=== PATIENT | female | born 1960 | race American Indian/Alaskan Native ===

== ENCOUNTER 2018-12-28 05:01 | Inpatient (IN) | payer OTHER ==
[2018-12-28 05:36] LABS: Hematocrit 37.6 % (30.3-42.9); Hemoglobin 12.7 gm/dl (10.1-14.3); Mean Corpuscular HGB Conc 34 % (30-34); Mean Corpuscular Volume 91 fl (79-97); Platelet Count 295 K/mm3 (140-440); Red Blood Count 4.15 M/mm3 (3.65-5.03); Red Cell Distribution Width 14.3 % (13.2-15.2)
[2018-12-28 05:52] LABS: BUN/Creatinine Ratio 19; Blood Urea Nitrogen 21 mg/dL (7-17); Calcium 9.3 mg/dL (8.4-10.2); Hemolysis Index 10
--- NOTE | 2018-12-28 06:16 | Emergency Department Report ---
ED General Adult HPI - General Chief complaint: Arrhythmia/Palpitations Stated complaint: HEART RACING/WEAK Time Seen by Provider: 12/28/18 05:59 Source: patient Mode of arrival: Ambulatory Limitations: No Limitations - History of Present Illness Initial comments: Mrs. Parr is a very pleasant 58 yo female who presents with fatigue and "stress" on her chest. She feels as if her heart is under stress. Has been noncompliant with anitihypertensive medication for several years. Currently not under care of PCP. She has been under a lot of stress. Denies depression. CUrrently unemployed. Denies chest pain or shortness of breath. Denies leg swelling. -: Gradual, days(s) (1) Quality: other ("strain") Consistency: constant Improves with: none Worsens with: none Associated Symptoms: other (fatigue) - Related Data Previous Rx's Medication Instructions Recorded Last Taken Type Ibuprofen [Motrin 800 MG tab] 800 mg PO TID PRN #20 tablet 12/25/14 Unknown Rx amLODIPine [Norvasc] 5 mg PO DAILY #90 tab 12/25/14 Unknown Rx Cyclobenzaprine HCl [Flexeril 5mg] 5 mg PO Q8HR PRN #15 tablet 12/31/14 Unknown Rx HYDROcodone/APAP 5-325 [[place] 1 - 2 each PO Q6HR PRN #20 tablet 12/31/14 Unknown Rx 5-325 mg TAB] amLODIPine [Norvasc] 5 mg PO DAILY 30 Days #30 tab 12/28/18 Unknown Rx hydroCHLOROthiazide [HCTZ] 25 mg PO QDAY 30 Days #30 tablet 12/28/18 Unknown Rx Allergies Allergy/AdvReac Type Severity Reaction Status Date / Time No Known Allergies Allergy Verified 12/31/14 03:35 ED Review of Systems ROS: Stated complaint: HEART RACING/WEAK Other details as noted in HPI Comment: All other systems reviewed and negative Constitutional: denies: fever, malaise Respiratory: denies: cough Cardiovascular: denies: chest pain ED Past Medical Hx - Past Medical History Previous Medical History?: Yes Hx Hypertension: Yes (off meds x over 5 years) - Surgical History Past Surgical History?: No Additional Surgical History: hernia repair - Social History Smoking Status: Never Smoker Substance Use Type: None - Medications Home Medications: Home Medications Medication Instructions Recorded Confirmed Last Taken Type Ibuprofen [Motrin 800 MG tab] 800 mg PO TID PRN #20 tablet 12/25/14 Unknown Rx amLODIPine [Norvasc] 5 mg PO DAILY #90 tab 12/25/14 Unknown Rx Cyclobenzaprine HCl [Flexeril 5mg] 5 mg PO Q8HR PRN #15 tablet 12/31/14 Unknown Rx HYDROcodone/APAP 5-325 [[place] 1 - 2 each PO Q6HR PRN #20 tablet 12/31/14 Unknown Rx 5-325 mg TAB] amLODIPine [Norvasc] 5 mg PO DAILY 30 Days #30 tab 12/28/18 Unknown Rx hydroCHLOROthiazide [HCTZ] 25 mg PO QDAY 30 Days #30 tablet 12/28/18 Unknown Rx ED Physical Exam - General Limitations: No Limitations General appearance: alert, in no apparent distress - Head Head exam: Present: atraumatic, normocephalic - Eye Eye exam: Present: normal appearance - ENT ENT exam: Present: mucous membranes moist - Neck Neck exam: Present: normal inspection, full ROM - Respiratory Respiratory exam: Present: normal lung sounds bilaterally. Absent: respiratory distress, wheezes, rales, rhonchi - Cardiovascular Cardiovascular Exam: Present: regular rate, normal rhythm, normal heart sounds. Absent: systolic murmur, diastolic murmur, rubs, gallop - GI/Abdominal GI/Abdominal exam: Present: soft, normal bowel sounds. Absent: distended, tenderness, guarding, rebound - Extremities Exam Extremities exam: Present: normal inspection - Back Exam Back exam: Present: normal inspection - Neurological Exam Neurological exam: Present: alert, oriented X3 - Psychiatric Psychiatric exam: Present: normal affect, normal mood - Skin Skin exam: Present: warm, dry, intact, normal color. Absent: rash ED Course Vital Signs 12/28/18 12/28/18 12/28/18 06:25 06:28 06:30 Temperature 98.5 F Pulse Rate 72 74 Respiratory 16 18 Rate Blood Pressure 176/97 196/106 Blood Pressure 176/97 [Left] O2 Sat by Pulse 100 100 Oximetry 12/28/18 12/28/18 12/28/18 06:45 07:00 07:12 Temperature Pulse Rate 79 78 82 Respiratory 17 9 L Rate Blood Pressure 200/98 196/102 196/102 Blood Pressure [Left] O2 Sat by Pulse 100 100 Oximetry ED Medical Decision Making - Lab Data Result diagrams: 12/28/18 05:18 12/28/18 05:18 - EKG Data 12/28/18 06:14 EKG obtained 513 Normal sinus rhythm rate 90 beats a minute normal axis normal intervals positive LVH ST depression in the inferior leads - Medical Decision Making Mrs. Parr is a healthy 58-year-old female who has been noncompliant with antihypertensive medication presents with fatigue heart "strain". Severely blood pressure here in the ED. Middle-age female, this presentation could represent ischemia or ACS due to microvessel disease. Additionally, with equivocal troponin level, patient is at risk for future cardiac event. Noted elevated BNP. EKG abnormal with ST depression inferiorly leads and LVH. I susp ect diastolic heart failure with untreated hypertension. She will require cardiac stress testing and echocardiogram. Admitted to the hospitalist service in stable condition. Treated with aspirin and antihypertensive medicine by mouth and IV in the ED. Bridging orders provided. Critical care attestation.: If time is entered above; I have spent that time in minutes in the direct care of this critically ill patient, excluding procedure time. ED Disposition Clinical Impression: Hypertensive urgency, Acute coronary syndrome Disposition: OP ADMIT IP TO THIS HOSP Is pt being admited?: Yes Does the pt Need Aspirin: No Condition: Stable Prescriptions: hydroCHLOROthiazide [HCTZ] 25 mg PO QDAY 30 Days #30 tablet amLODIPine [Norvasc] 5 mg PO DAILY 30 Days #30 tab
[2018-12-28] MEDS ORDERED: NORMODYNE PO ONE (06:43)
--- NOTE | 2018-12-28 06:56 | XRay Report ---
PROCEDURE: XR CHEST 1V AP HISTORY: fatigue COMPARISONS: None FINDINGS: Normal cardiomediastinal silhouette. No focal infiltrate, CHF changes, mass or pleural effusion. No pneumothorax. Unremarkable osseous structures. Impression: 1. No radiographic evidence of active lung disease. This document is electronically signed by Joanne Rooney MD., December 28 2018 06:53:51 AM ET
[2018-12-28 07:11] LABS: Basophils % (Manual) 0 % (0.0-1.8); Eosinophils % (Manual) 0 % (0.0-4.3); RBC Morphology Normal; Total Cells Counted 100
[2018-12-28] MEDS ORDERED: BABY ASPIRIN PO ONE (07:34)
[2018-12-28] MEDS ORDERED: NORMODYNE IV ONE ×2 (07:34→09:06)
[2018-12-28 07:43] LABS: Chol/HDL Ratio 4.6 %
[2018-12-28] MEDS ORDERED: ASPIRIN ONE (09:05)
--- NOTE | 2018-12-28 09:48 | History and Physical Report ---
History of Present Illness Date of examination: 12/28/18 Date of admission: 12/28/18 07:36 Chief complaint: Chest pressure and discomfort History of present illness: Mrs. Parr is a very pleasant 58 yo female who presents with fatigue and chest discomfort. She feels as if her heart is under stress. Has been noncompliant with anitihypertensive medication for several years. Currently not under care of PCP. She has been under a lot of stress. Denies depression. CUrrently unemployed. Denies chest pain or shortness of breath. Denies leg swelling. Past Medical History Previous Medical History?: Yes Hx Hypertension: Yes (off meds x over 5 years) Surgical History Past Surgical History?: No Additional Surgical History: hernia repair Social History Smoking Status: Never Smoker Substance Use Type: None Medications Home Medications: Home Medications Medication Instructions Recorded Confirmed Last Taken Type Ibuprofen [Motrin 800 MG tab] 800 mg PO TID PRN #20 tablet 12/25/14 Unknown Rx amLODIPine [Norvasc] 5 mg PO DAILY #90 tab 12/25/14 Unknown Rx Cyclobenzaprine HCl [Flexeril 5mg] 5 mg PO Q8HR PRN #15 tablet 12/31/14 Unknown Rx HYDROcodone/APAP 5-325 [[place] 1 - 2 each PO Q6HR PRN #20 tablet 12/31/14 Unknown Rx 5-325 mg TAB] amLODIPine [Norvasc] 5 mg PO DAILY 30 Days #30 tab 12/28/18 Unknown Rx hydroCHLOROthiazide [HCTZ] 25 mg PO QDAY 30 Days #30 tablet 12/28/18 Unknown Rx Review of Systems ROS: Stated complaint: HEART RACING/WEAK Other details as noted in HPI Comment: All other systems reviewed and negative Constitutional: denies: fever, malaise Respiratory: denies: cough Cardiovascular: denies: chest pain Medications and Allergies Allergies Allergy/AdvReac Type Severity Reaction Status Date / Time No Known Allergies Allergy Verified 12/31/14 03:35 Home Medications Medication Instructions Recorded Confirmed Last Taken Type amLODIPine [Norvasc] 5 mg PO DAILY 12/28/18 12/28/18 10/10/15 History Exam - Constitutional Vitals: Temp Pulse Resp BP Pulse Ox 97.5 F L 68 18 187/86 100 12/28/18 09:25 12/28/18 09:25 12/28/18 09:25 12/28/18 09:25 12/28/18 09:25 General appearance: Present: no acute distress, well-nourished - EENT Eyes: Present: PERRL ENT: hearing intact, clear oral mucosa - Neck Neck: Present: supple, normal ROM - Respiratory Respiratory effort: normal Respiratory: bilateral: CTA - Cardiovascular Heart rate: 78 Rhythm: regular Heart Sounds: Present: S1 & S2. Absent: rub, click - Extremities Extremities: no ischemia, pulses intact, pulses symmetrical, No edema Peripheral Pulses: within normal limits - Abdominal General gastrointestinal: Present: soft, non-tender, non-distended, normal bowel sounds Female genitourinary: Present: normal - Integumentary Integumentary: Present: clear, warm, dry - Musculoskeletal Musculoskeletal: gait normal, strength equal bilaterally - Psychiatric Psychiatric: appropriate mood/affect, intact judgment & insight - Neurologic Neurologic: CNII-XII intact, moves all extremities - Allied Health Allied health notes reviewed: nursing, case management Results - Labs CBC & Chem 7: 12/29/18 05:51 12/29/18 05:51 Labs: Laboratory Last Values WBC 7.3 K/mm3 (4.5-11.0) 12/28/18 05:18 RBC 4.15 M/mm3 (3.65-5.03) 12/28/18 05:18 Hgb 12.7 gm/dl (10.1-14.3) 12/28/18 05:18 Hct 37.6 % (30.3-42.9) 12/28/18 05:18 MCV 91 fl (79-97) 12/28/18 05:18 MCH 31 pg (28-32) 12/28/18 05:18 MCHC 34 % (30-34) 12/28/18 05:18 RDW 14.3 % (13.2-15.2) 12/28/18 05:18 Plt Count 295 K/mm3 (140-440) 12/28/18 05:18 Add Manual Diff Complete 12/28/18 05:18 Total Counted 100 12/28/18 05:18 Seg Neutrophils % Monkey Trainer 12/28/18 05:18 Seg Neuts % (Manual) 55.0 % (40.0-70.0) 12/28/18 05:18 Band Neutrophils % 0 % 12/28/18 05:18 Lymphocytes % (Manual) 42.0 % (13.4-35.0) H 12/28/18 05:18 Reactive Lymphs % (Man) 0 % 12/28/18 05:18 Monocytes % (Manual) 3.0 % (0.0-7.3) 12/28/18 05:18 Eosinophils % (Manual) 0 % (0.0-4.3) 12/28/18 05:18 Basophils % (Manual) 0 % (0.0-1.8) 12/28/18 05:18 Metamyelocytes % 0 % 12/28/18 05:18 Myelocytes % 0 % 12/28/18 05:18 Promyelocytes % 0 % 12/28/18 05:18 Blast Cells % 0 % 12/28/18 05:18 Nucleated RBC % Not Reportable 12/28/18 05:18 Seg Neutrophils # Man 4.0 K/mm3 (1.8-7.7) 12/28/18 05:18 Band Neutrophils # 0.0 K/mm3 12/28/18 05:18 Lymphocytes # (Manual) 3.1 K/mm3 (1.2-5.4) 12/28/18 05:18 Abs React Lymphs (Man) 0.0 K/mm3 12/28/18 05:18 Monocytes # (Manual) 0.2 K/mm3 (0.0-0.8) 12/28/18 05:18 Eosinophils # (Manual) 0.0 K/mm3 (0.0-0.4) 12/28/18 05:18 Basophils # (Manual) 0.0 K/mm3 (0.0-0.1) 12/28/18 05:18 Metamyelocytes # 0.0 K/mm3 12/28/18 05:18 Myelocytes # 0.0 K/mm3 12/28/18 05:18 Promyelocytes # 0.0 K/mm3 12/28/18 05:18 Blast Cells # 0.0 K/mm3 12/28/18 05:18 WBC Morphology Not Reportable 12/28/18 05:18 Hypersegmented Neuts Not Reportable 12/28/18 05:18 Hyposegmented Neuts Not Reportable 12/28/18 05:18 Hypogranular Neuts Not Reportable 12/28/18 05:18 Smudge Cells Not Reportable 12/28/18 05:18 Toxic Granulation Not Reportable 12/28/18 05:18 Toxic Vacuolation Not Reportable 12/28/18 05:18 Dohle Bodies Not Reportable 12/28/18 05:18 Pelger-Huet Anomaly Not Reportable 12/28/18 05:18 Librado Rods Not Reportable 12/28/18 05:18 Platelet Estimate Appears normal 12/28/18 05:18 Clumped Platelets Not Reportable 12/28/18 05:18 Plt Clumps, EDTA Not Reportable 12/28/18 05:18 Large Platelets Not Reportable 12/28/18 05:18 Giant Platelets Not Reportable 12/28/18 05:18 Platelet Satelliting Not Reportable 12/28/18 05:18 Plt Morphology Comment Not Reportable 12/28/18 05:18 RBC Morphology Normal 12/28/18 05:18 Dimorphic RBCs Not Reportable 12/28/18 05:18 Polychromasia Not Reportable 12/28/18 05:18 Hypochromasia Not Reportable 12/28/18 05:18 Poikilocytosis Not Reportable 12/28/18 05:18 Anisocytosis Not Reportable 12/28/18 05:18 Microcytosis Not Reportable 12/28/18 05:18 Macrocytosis Not Reportable 12/28/18 05:18 Spherocytes Not Reportable 12/28/18 05:18 Pappenheimer Bodies Not Reportable 12/28/18 05:18 Sickle Cells Not Reportable 12/28/18 05:18 Target Cells Not Reportable 12/28/18 05:18 Tear Drop Cells Not Reportable 12/28/18 05:18 Ovalocytes Not Reportable 12/28/18 05:18 Helmet Cells Not Reportable 12/28/18 05:18 Thompson-Nedrow Bodies Not Reportable 12/28/18 05:18 [place] Rings Not Reportable 12/28/18 05:18 [place] Cells Not Reportable 12/28/18 05:18 Bite Cells Not Reportable 12/28/18 05:18 Crenated Cell Not Reportable 12/28/18 05:18 Elliptocytes Not Reportable 12/28/18 05:18 Acanthocytes (Spur) Not Reportable 12/28/18 05:18 Rouleaux Not Reportable 12/28/18 05:18 Hemoglobin C Crystals Not Reportable 12/28/18 05:18 Schistocytes Not Reportable 12/28/18 05:18 Malaria parasites Not Reportable 12/28/18 05:18 Jose C Bodies Not Reportable 12/28/18 05:18 Hem Pathologist Commnt No 12/28/18 05:18 Sodium 139 mmol/L (137-145) 12/28/18 05:18 Potassium 3.5 mmol/L (3.6-5.0) L 12/28/18 05:18 Chloride 100.4 mmol/L (98-107) 12/28/18 05:18 Carbon Dioxide 25 mmol/L (22-30) 12/28/18 05:18 Anion Gap 17 mmol/L 12/28/18 05:18 BUN 21 mg/dL (7-17) H 12/28/18 05:18 Creatinine 1.1 mg/dL (0.7-1.2) 12/28/18 05:18 Estimated GFR > 60 ml/min 12/28/18 05:18 BUN/Creatinine Ratio 19 % 12/28/18 05:18 Glucose 105 mg/dL (65-100) H 12/28/18 05:18 Calcium 9.3 mg/dL (8.4-10.2) 12/28/18 05:18 Troponin T 0.034 ng/mL (0.00-0.029) H 12/28/18 05:18 NT-Pro-B Natriuret Pep 2669 pg/mL (0-900) H 12/28/18 05:18 Triglycerides 124 mg/dL (2-149) 12/28/18 05:18 Cholesterol 175 mg/dL (50-199) 12/28/18 05:18 LDL Cholesterol Direct 122 mg/dL (50-130) 12/28/18 05:18 HDL Cholesterol 38 mg/dL (40-59) L 12/28/18 05:18 Cholesterol/HDL Ratio 4.60 % 12/28/18 05:18 - Imaging and Cardiology EKG: report reviewed (NSR 89/min LVH ) Assessment and Plan Advance Directives: Yes (Full code) VTE prophylaxis?: Chemical Plan of care discussed with patient/family: Yes - Patient Problems (1) Hypertensive urgency Current Visit: Yes Status: Acute Plan to address problem: Started on Losartan and Coreg and Amlodipine Hydralazine 10 mg q3 PRN (2) Chest pain Current Visit: Yes Status: Acute Qualifiers: Chest pain type: unspecified Qualified Code(s): R07.9 - Chest pain, unspecified Plan to address problem: Lexiscan tomorrow (3) DVT prophylaxis Current Visit: Yes Status: Acute Plan to address problem: On Lovenox and GI prophylaxis
[2018-12-28] MEDS ORDERED: SODIUM CHLORIDE FLUSH SYRINGE 10 ML IV PRN (09:50)
[2018-12-28] MEDS ORDERED: PERCOCET 5/325 PO PRN (09:50)
[2018-12-28] MEDS ORDERED: DILAUDID IV PRN (09:50)
[2018-12-28] MEDS ORDERED: ZOFRAN IV PRN (11:00)
[2018-12-28] MEDS ORDERED: TYLENOL PO PRN (11:00)
[2018-12-28] MEDS: COZAAR PO SCH (11:10)
[2018-12-28] MEDS: NORVASC PO SCH (11:10)
[2018-12-28] MEDS: COREG PO SCH ×2 (11:10→22:10)
[2018-12-28] MEDS: PEPCID PO SCH ×2 (11:10→22:10)
[2018-12-28] MEDS: SODIUM CHLORIDE FLUSH SYRINGE 10 ML IV SCH ×2 (11:12→22:14)
[2018-12-28] MEDS: APRESOLINE IV PRN (17:18)
[2018-12-29] MEDS: NORVASC PO SCH ×2 (04:59→13:48)
[2018-12-29 06:39] LABS: Basophils % (Auto) 0.5 % (0.0-1.8); Eosinophils # (Auto) 0.1 K/mm3 (0.0-0.4); Eosinophils % (Auto) 1.8 % (0.0-4.3); Hematocrit 39.5 % (30.3-42.9); Hemoglobin 13.1 gm/dl (10.1-14.3); Lymphocytes # (Auto) 1.8 K/mm3 (1.2-5.4); Lymphocytes % (Auto) 32.8 % (13.4-35.0); Mean Corpuscular HGB Conc 33 % (30-34); Mean Corpuscular Volume 92 fl (79-97); Monocytes # (Auto) 0.5 K/mm3 (0.0-0.8); Monocytes % (Auto) 8.9 % (0.0-7.3); Platelet Count 295 K/mm3 (140-440); Red Cell Distribution Width 14.4 % (13.2-15.2)
[2018-12-29 07:06] LABS: Alanine Aminotransferase 9 units/L (7-56); BUN/Creatinine Ratio 14; Blood Urea Nitrogen 13 mg/dL (7-17); Calcium 9.5 mg/dL (8.4-10.2); Hemolysis Index 2
[2018-12-29] MEDS ORDERED: LEXISCAN IV ONE ×2 (11:41→11:42)
[2018-12-29] MEDS: COZAAR PO SCH (13:47)
[2018-12-29] MEDS: COREG PO SCH (13:47)
[2018-12-29] MEDS: PEPCID PO SCH (13:48)
[2018-12-29 15:31] VITALS: BP 184/94
[2018-12-29] MEDS: APRESOLINE IV PRN (16:03)
--- NOTE | 2018-12-29 17:12 | Discharge Summary ---
Providers - Providers Date of Admission: 12/28/18 07:36 Date of discharge: 12/29/18 Attending physician: CORNELIUS ROMAN None Primary care physician: CAMPUS COORDINATOR Hospitalization Condition: Stable Pertinent studies: Lexiscan negative Hospital course: (1) Hypertensive urgency Current Visit: Yes Status: Acute Plan to address problem: Started on Losartan and Coreg and Amlodipine BP better controlled Will discharge on Irbesartan [address] of Losartan b/c of recall on some batches. And also Amlodipine and Coreg (2) Chest pain Current Visit: Yes Status: Acute Qualifiers: Chest pain type: unspecified Qualified Code(s): R07.9 - Chest pain, unspecified Plan to address problem: Lexiscan Negative Disposition: DC-01 TO HOME OR SELFCARE - Discharge Diagnoses (1) Hypertensive urgency Status: Acute (2) Chest pain Status: Acute Qualifiers: Chest pain type: unspecified Qualified Code(s): R07.9 - Chest pain, unspeci fied (3) DVT prophylaxis Status: Acute Core Measure Documentation - Palliative Care Palliative Care/ Comfort Measures: Not Applicable - Core Measures Any of the following diagnoses?: none Exam - Constitutional Vitals: Temp Pulse Resp BP Pulse Ox 97.3 F L 83 18 184/94 100 12/29/18 15:25 12/29/18 16:03 12/29/18 15:25 12/29/18 16:03 12/29/18 15:25 General appearance: Present: no acute distress, well-nourished - EENT Eyes: Present: PERRL ENT: hearing intact, clear oral mucosa - Neck Neck: Present: supple, normal ROM - Respiratory Respiratory effort: normal Respiratory: bilateral: CTA - Cardiovascular Heart Sounds: Present: S1 & S2. Absent: rub, click - Extremities Extremities: pulses symmetrical, No edema Peripheral Pulses: within normal limits - Abdominal General gastrointestinal: Present: soft, non-tender, non-distended, normal bowel sounds Female genitourinary: Present: normal - Integumentary Integumentary: Present: clear, warm, dry - Musculoskeletal Musculoskeletal: gait normal, strength equal bilaterally - Psychiatric Psychiatric: appropriate mood/affect, intact judgment & insight - Neurologic Neurologic: CNII-XII intact, moves all extremities Plan Activity: no restrictions Diet: regular, low cholesterol, low salt, diabetic Follow up with: PRIMARY CARE, [Primary Care Provider] - 3-5 Days
--- NOTE | 2018-12-29 21:28 | Treadmill Report ---
SINGLE ISOTOPE DURAL STUDY MYOCARDIAL PERFUSION SCAN AGE: 58. SEX: Female. REFERRING PHYSICIAN: Austin Richey MD Se[facility] and [facility] DESCRIPTION OF PROCEDURE: The patient received 10 mCi of technetium 99m Myoview intravenously under resting conditions. Resting myocardial perfusion scan was done. Subsequently, the patient underwent Lexiscan stress test as per the protocol. During Lexiscan stress, the patient received 28 mCi of technetium 99m Myoview intravenously. After 30-60 minutes, post stress images were done. The post-stress images revealed mild transient ischemic dilatation of the left ventricle with TID ratio of 1.16. There was no perfusion abnormality in the stress images. Cinematic display of the gated study did not reveal any wall motion abnormality. The left ventricular ejection fraction was normal and was calculated to be 59%. The resting images did not reveal any perfusion abnormality. CONCLUSION: 1. No perfusion abnormality of the left ventricular myocardium was demonstrated in the resting as well as stress images obtained after the patient underwent Lexiscan stress test. 2. Mild transient ischemic dilatation of the left ventricle, the stress images with TID ratio of 1.16. This is of uncertain significance. 3. No wall motion abnormality. 4. Normal left ventricular ejection fraction of 59%. JOB# [id number] [facility]
== END 2018-12-29 18:00 | disposition home or self-care (01) | DRG 305 ==
LOC: ED 05:01 → 4A 07:36
PROVIDERS: ADMIT Internal Medicine; ATTEND Internal Medicine
DX: I16.0 Hypertensive urgency (principal); I10 Essential (primary) hypertension; R07.9 Chest pain, unspecified; Z91.14 Patient's other noncompliance with medication regimen
CPT/HCPCS: 36415; 71045; 78452; 80048; 80053; 80061; 82962; 83036; 83880; 84484; 85007; 85025; 93005; 93010; 93017; 96374; G0378; A9502; J0360; J2405; J2785